=== PATIENT | female | born 1985 | race Caucasian/White ===

== ENCOUNTER 2016-06-28 15:03 | Emergency (ER) | payer OTHER ==
[2016-06-28 15:20] VITALS: BP 111/76
--- NOTE | 2016-06-28 16:37 | ED.ADGEN ---
Past History Past Medical History: No Pertinent History Past Surgical History: Other Alcohol Use: None Drug Use: None Adult General HPI HPI Patient is a 30-year-old female presents emergency department complaining of a "tingling and burning" along her left lateral leg. Patient states that come on over the last couple of days but is worse today. She also believes that the spider veins on her leg have been enlarged. She denies that there is any pain to the leg. She was working out today however became concerned that maybe something more serious. She denies any chest pain or dyspnea. Review of Systems Review of Systems Constitutional: Denies fever or chills [] Eyes: Denies change in visual acuity, redness, or eye pain [] HENT: Denies nasal congestion or sore throat [] Respiratory: Denies cough or shortness of breath [] Cardiovascular: No additional information not addressed in HPI [] GI: Denies abdominal pain, nausea, vomiting, bloody stools or diarrhea [] : Denies dysuria or hematuria [] Musculoskeletal: Denies back pain or joint pain [] Integument: Denies rash or skin lesions [] Neurologic: Denies headache, focal weakness or sensory changes [] Endocrine: Denies polyuria or polydipsia [] Allergies Allergies Allergies Coded Allergies Type Severity Reaction Last Updated Verified No Known Drug Allergies 06/28/16 No Physical Exam Physical Exam Constitutional: Well developed, well nourished, no acute distress, non-toxic appearance. [] HENT: Normocephalic, atraumatic, bilateral external ears normal, oropharynx moist, no oral exudates, nose normal. [] Eyes: PERRLA, EOMI, conjunctiva normal, no discharge. [] Neck: Normal range of motion, no tenderness, supple, no stridor. [] Cardiovascular:Heart rate regular rhythm, no murmur [] Lungs & Thorax: Bilateral breath sounds clear to auscultation [] Abdomen: Bowel sounds normal, soft, no tenderness, no masses, no pulsatile masses. [] Skin: Warm, dry, no erythema, no rash. [] Back: No tenderness, no CVA tenderness. [] Extremities: No tenderness, no cyanosis, no clubbing, ROM intact, no edema. [] Neurologic: Alert and oriented X 3, normal motor function, normal sensory function, no focal deficits noted. [] Psychologic: Affect normal, judgement normal, mood normal. [] Current Patient Data Vital Signs Vital Signs Date Time Temp Pulse Resp B/P Pulse Ox O2 Delivery O2 Flow Rate FiO2 06/28/16 15:20 97.7 68 16 99 Room Air EKG EKG [] Radiology/Procedures Radiology/Procedures [] Course & Med Decision Making Course & Med Decision Making Pertinent Labs and Imaging studies reviewed. (See chart for details) Patient has a completely benign exam. All of her compartments are nice and soft touch see no indications of a compartment syndrome. She has no risk factors and I do not see any evidence for DVT with a negative Wells and perc score. I do think she might have some myalgia paresthetica and have asked her to follow-up with her primary care physician regarding that. She will of course return emergency department sooner she develops new or worsening symptoms. [] Final Impression Final Impression Myalgia paresthetica [] Problems: Dragon Disclaimer Dragon Disclaimer This electronic medical record was generated, in whole or in part, using a voice recognition dictation system. HONORIO ARIAS MD Jun 28, 2016 16:37
== END 2016-06-28 16:15 | disposition home or self-care (01) ==
LOC: ER 15:03
DX: M79.1 Myalgia (principal); M79.605 Pain in left leg; R20.2 Paresthesia of skin
CPT/HCPCS: 99281

== ENCOUNTER 2016-09-07 10:42 | Emergency (ER) | payer OTHER ==
[~2016-09-07] VITALS: Ht 162.6 cm; Wt 53.1 kg
[2016-09-07 11:03] VITALS: BP 103/80
[2016-09-07] MEDS ORDERED: predniSONE 20 MG TABLET ONE (11:41)
[2016-09-07] MEDS ORDERED: KETOROLAC 60 MG/2 ML VIAL. IM ONE ×2 (11:42→11:45)
[2016-09-07] MEDS ORDERED: CYCL-331 PO (11:45)
[2016-09-07] MEDS ORDERED: HYDR-971 PO (11:45)
[2016-09-07] MEDS ORDERED: predniSONE 20 MG TABLET PO ONE (11:45)
--- NOTE | 2016-09-07 11:45 | PHYS DOC ---
Past History Past Medical History: No Pertinent History Past Surgical History: No Surgical History Alcohol Use: Rarely Drug Use: None Adult General Chief Complaint Chief Complaint: BACK PAIN OR INJURY [facility] 31-year-old female with no significant past medical history now presents to the emergency department complaining of low back pain. Patient states she strained her low back doing some activity recently and then it was feeling better but got suddenly worse when she bent over to give her dog some water today pain is worse with movement of the low back area. She does not have pain shooting down her legs. She has no incontinence or change in her strength sensation or use of her lower extremities. Patient has no prior history of spinal abnormalities or herniated disc. She's never had an MRI of her low back. Patient is able to ambulate with mild discomfort. Review of Systems Review of Systems Constitutional: Denies fever or chills [] Eyes: Denies change in visual acuity, redness, or eye pain [] HENT: Denies nasal congestion or sore throat [] Respiratory: Denies cough or shortness of breath [] Cardiovascular: No additional information not addressed in HPI [] GI: Denies abdominal pain, nausea, vomiting, bloody stools or diarrhea [] : Denies dysuria or hematuria [] Musculoskeletal: Denies back pain or joint pain [] Integument: Denies rash or skin lesions [] Neurologic: Denies headache, focal weakness or sensory changes [] Endocrine: Denies polyuria or polydipsia [] Allergies Allergies Allergies Coded Allergies Type Severity Reaction Last Updated Verified No Known Drug Allergies 06/28/16 No Physical Exam Physical Exam Constitutional: Well developed, well nourished, no acute distress, non-toxic appearance. [] HENT: Normocephalic, atraumatic, bilateral external ears normal, oropharynx moist, no oral exudates, nose normal. [] Eyes: , EOMI, conjunctiva normal, no discharge. [] Neck: Normal range of motion, no tenderness, supple, no stridor. [] Cardiovascular: No tachycardia in triage Lungs & Thorax: Normal and symmetrical chest wall excursion Abdomen: Nondistended abdomen nontender Skin: Warm, dry, no erythema, no rash. [] Back: Bilateral lumbar soft tissue paraspinal tenderness no CVA tenderness. No spinal or midline tenderness. No saddle anesthesia. Negative straight leg raise bilaterally. Neurovascularly intact bilateral lower extremities. [] Extremities: No tenderness, no cyanosis, no clubbing, ROM intact, no edema. [] Neurologic: Alert and oriented X 3, normal motor function, normal sensory function, no focal deficits noted. [] Psychologic: Affect normal, judgement normal, mood normal. [] Current Patient Data Vital Signs Vital Signs Date Time Temp Pulse Resp B/P (MAP) Pulse Ox O2 Delivery O2 Flow Rate FiO2 09/07/16 11:03 97.9 92 16 97 Room Air EKG EKG [] Radiology/Procedures Radiology/Procedures [] Course & Med Decision Making Course & Med Decision Making Pertinent Labs and Imaging studies reviewed. (See chart for details) Signs and symptoms consistent with lumbar strain with low back spasm. No clinical evidence of cauda equina syndrome. Negative straight leg raise with no stevan radiculopathy. Injury and pain clearly precipitated by mechanical movement of bending over today. Nonfocal neurologic exam. Patient states she is driving home. Steroid and anti-inflammatory medication administered and patient given prescription for muscle relaxant and [place]. No further workup or treatment indicated at this time. Patient agrees with outpatient follow-up with her primary care doctor and strict return precautions given. [] Dragon Disclaimer Dragon Disclaimer This chart was dictated in whole or in part using Voice Recognition software in a busy, high-work load, and often noisy Emergency Department environment. It may contain unintended and wholly unrecognized errors or omissions. Departure Departure: Disposition: HOME, SELF-CARE Condition: IMPROVED Referrals: PCP,UNKNOWN (PCP) Patient Instructions: Low Back Strain with [facility] Additional Instructions: Your symptoms suggest that you have low back strain also called lumbar strain. This means he injured some of the soft tissues that surround and support your spine and low back. It appears the also have some muscle spasm as a result of inflammation and injury to these muscles. Rest and avoid strenuous activity until her symptoms have improved. Take 800 mg of ibuprofen every 6 hours as needed for pain. Use Flexeril as prescribed as needed for spasm. Finish prednisone as prescribed once a day for 5 days and use [place] only if her pain is unrelieved by the other measures. Follow up with your doctor in 2-3 days for reevaluation and to discuss further workup in the future including possibility of MRI of your lumbar spine as needed. Return immediately for incontinence or inability to use her legs normally, or other severe or worsening symptoms Scripts Prednisone (PREDNISONE) 50 Mg Tablet 1 TAB PO DAILY for 5 Days, #5 TAB Prov: ANJANA RAPHAEL MD 09/07/16 Hydrocodone Bit/Acetaminophen (NORCO 5-325 TABLET) 1 Each Tablet 1 TAB PO PRN Q6HRS Y for PAIN, #10 TAB 0 Refills Prov: ANJANA RAPHAEL MD 09/07/16 Cyclobenzaprine Hcl (CYCLOBENZAPRINE HCL) 10 Mg Tablet 1 TAB PO TID, #30 TAB Prov: ANJANA RAPHAEL MD 09/07/16 ANJANA RAPHAEL MD Sep 07, 2016 11:45
[2016-09-07] MEDS ORDERED: PRED50TA PO (11:54)
== END 2016-09-07 12:09 | disposition home or self-care (01) ==
LOC: ER 10:42
DX: S39.012A Strain of muscle, fascia and tendon of lower back, initial encounter (principal); X58.XXXA Exposure to other specified factors, initial encounter; Y93.89 Activity, other specified; Y99.8 Other external cause status; Y92.89 Other specified places as the place of occurrence of the external cause
CPT/HCPCS: 96372; 99283; J1885; J7512

== ENCOUNTER 2016-10-08 07:19 | Emergency (ER) | payer OTHER ==
[~2016-10-08] VITALS: Ht 162.6 cm; Wt 52.2 kg
[~2016-10-08 07:19] MED LIST: CYCL-331 PO; HYDR-971 PO; PRED50TA PO
--- NOTE | 2016-10-08 07:53 | PHYS DOC ---
Past History Past Medical History: No Pertinent History Past Surgical History: No Surgical History Alcohol Use: Rarely Drug Use: None Adult General Chief Complaint Chief Complaint: nausea and vomiting HPI HPI Patient is a 31 year old female who presents with complaint of severe nausea and vomiting. Patient states her symptoms started approximately 1.5 hours prior to arrival. Patient states upon awakening she had severe nausea and multiple episodes of vomiting. Patient states that she has had history of similar symptoms and was told that she had cyclic vomiting syndrome. Patient states that she has not had any episodes for approximately 2 years. Patient states that when she's had these episodes she would have to come to the emergency department where she would receive IV fluids and IV antibiotics with resolution of symptoms. Patient states that she has an old prescription of Zofran at home and tried taking this medication prior to arrival with minimal relief in symptoms. Patient denies any pain, fever, urinary symptoms, or abnormal discharge. Patient states that her last menstrual period was one week ago. Review of Systems Review of Systems Constitutional: Denies fever or chills [] Eyes: Denies change in visual acuity, redness, or eye pain [] HENT: Denies nasal congestion or sore throat [] Respiratory: Denies cough or shortness of breath [] Cardiovascular: Denies chest pain or edema [] GI: Nausea, vomiting, denies abdominal pain, bloody stools, or diarrhea [] : Denies dysuria or hematuria [] Musculoskeletal: Denies back pain or joint pain [] Integument: Denies rash or skin lesions [] Neurologic: Denies headache, focal weakness or sensory changes [] Current Medications Current Medications Current Medications Medications (Trade) Dose Ordered Sig/Jorden Start Time Stop Time Status Last Admin Dose Admin Potassium Chloride (Klor-Con) 40 meq 1X ONCE 10/08/16 09:00 10/08/16 09:01 DC 10/08/16 08:40 Prochlorperazine Edisylate (Compazine) 10 mg 1X ONCE 10/08/16 08:30 10/08/16 08:31 DC 10/08/16 08:10 Sodium Chloride 1,000 ml @ 1,000 mls/hr Q1H 10/08/16 08:30 10/08/16 09:29 10/08/16 08:10 Allergies Allergies Allergies Coded Allergies Type Severity Reaction Last Updated Verified No Known Drug Allergies 06/28/16 No Physical Exam Physical Exam Constitutional: Alert, afebrile, appears fatigued. [] HENT: Normocephalic, atraumatic, bilateral external ears normal, oropharynx moist, no oral exudates, nose normal. [] Eyes: PERRLA, EOMI, conjunctiva normal, no discharge. [] Neck: Normal range of motion, no tenderness, supple, no stridor. [] Cardiovascular:Heart rate regular rhythm, no murmur [] Lungs & Thorax: Bilateral breath sounds clear to auscultation [] Abdomen: Bowel sounds normal, soft, no tenderness, no masses, no pulsatile masses. [] Skin: Warm, dry, no erythema, no rash. [] Back: No tenderness, no CVA tenderness. [] Extremities: No tenderness, no cyanosis, no clubbing, ROM intact, no edema. [] Neurologic: Alert and oriented X 3, normal motor function, normal sensory function, no focal deficits noted. [] Current Patient Data Vital Signs Vital Signs Date Time Temp Pulse Resp B/P (MAP) Pulse Ox O2 Delivery O2 Flow Rate FiO2 10/08/16 07:20 98.2 66 20 98 Room Air Lab Results Laboratory Tests Test 10/08/16 07:50 10/08/16 07:55 Bedside Urine HCG, Qualitative hcg negative White Blood Count 5.8 x10^3/uL Red Blood Count 4.37 x10^6/uL Hemoglobin 12.3 g/dL Hematocrit 35.0 % Mean Corpuscular Volume 80 fL Mean Corpuscular Hemoglobin 28 pg Mean Corpuscular Hemoglobin Concent 35 g/dL Red Cell Distribution Width 14.4 % Platelet Count 230 x10^3/uL Neutrophils (%) (Auto) 40 % Lymphocytes (%) (Auto) 46 % Monocytes (%) (Auto) 12 % Eosinophils (%) (Auto) 1 % Basophils (%) (Auto) 1 % Neutrophils # (Auto) 2.3 x10^3uL Lymphocytes # (Auto) 2.7 x10^3/uL Monocytes # (Auto) 0.7 x10^3/uL Eosinophils # (Auto) 0.1 x10^3/uL Basophils # (Auto) 0.0 x10^3/uL Sodium Level 138 mmol/L Potassium Level 2.5 mmol/L Chloride Level 93 mmol/L Carbon Dioxide Level 42 mmol/L Anion Gap 3 Blood Urea Nitrogen 22 mg/dL Creatinine 1.3 mg/dL Estimated GFR (Cockcroft-Gault) 48.1 Glucose Level 99 mg/dL Calcium Level 9.1 mg/dL Magnesium Level 1.8 mg/dL Current Medications Medications (Trade) Dose Ordered Sig/Jorden Route PRN Reason Start Time Stop Time Status Last Admin Dose Admin Sodium Chloride 1,000 ml @ 1,000 mls/hr Q1H IV 10/08/16 08:30 10/08/16 09:29 10/08/16 08:10 Prochlorperazine Edisylate (Compazine) 10 mg 1X ONCE IV 10/08/16 08:30 10/08/16 08:31 DC 10/08/16 08:10 Potassium Chloride (Klor-Con) 40 meq 1X ONCE PO 10/08/16 09:00 10/08/16 09:01 DC 10/08/16 08:40 EKG EKG Rhythm strip interpretation by me: Heart rate 66, sinus rhythm, no ectopy Oxygen saturation interpretation by me: 98% on room air with good waveform Radiology/Procedures Radiology/Procedures None performed [] Course & Med Decision Making Course & Med Decision Making Pertinent Labs and Imaging studies reviewed. (See chart for details) The patient was started on IV fluids and IV Compazine in the emergency department. The patient's nausea resolved with administration of Compazine. The patient requested that her IV be taken out before the full bolus of fluids could be given as she stated that the IV was hurting her arm. On examination, the IV fluids were infusing easily and patient showed no evidence of infiltration on exam. The patient was informed of her lab results including elevated BUN and creatinine and for the reasoning behind administration of IV fluids. The patient stated that she did not want the IV in place any more and received a total of 700 mL of IV fluids. The patient did agree that she would continue oral hydration at home. IV was removed at patient's request. Patient was also found to have a low potassium level at 2.5. Patient was given 40 mEq of potassium in the emergency department. Patient was offered to receive an additional 40 mEq one hour after initial administration to give her a total of 80 mEq and to avoid further nausea and vomiting from oral potassium supplementation. Patient stated that she did not want to wait in the emergency department to receive this, however she agreed to fill 40 mEq of potassium as a prescription to take as outpatient. Patient was given prescriptions for both potassium chloride and Zofran. Advise follow-up in 2 days with primary doctor and return to emergency department for any worsening symptoms. Patient voiced understanding and in agreement with treatment plan. Dragon Disclaimer Dragon Disclaimer This chart was dictated in whole or in part using Voice Recognition software in a busy, high-work load, and often noisy Emergency Department environment. It may contain unintended and wholly unrecognized errors or omissions. Departure Departure: Impression: Primary Impression: Nausea and vomiting Additional Impressions: Hypokalemia Dehydration Disposition: HOME, SELF-CARE Condition: IMPROVED Referrals: HONORIO GARCIA MD (PCP) Patient Instructions: Dehydration, Adult, Hypokalemia, Nausea and Vomiting Additional Instructions: Follow-up in 2 days with your primary doctor. Return to emergency department for any worsening symptoms. Scripts Potassium Chloride (POTASSIUM CHLORIDE) 10 Meq Tablet.er 40 MEQ PO 1X, #4 TAB Prov: DENIS DELEON MD 10/08/16 Ondansetron (ZOFRAN ODT) 4 Mg Tab.rapdis 1 TAB SL Q8HRS Y for NAUSEA/VOMITING, #20 TAB Prov: DENIS DELEON MD 10/08/16 Problem Qualifiers Primary Impression: Nausea and vomiting Vomiting type: cyclical vomiting Vomiting Intractability: non-intractable Qualified Codes: G43.A0 - Cyclical vomiting, not intractable DENIS DELEON MD Oct 08, 2016 07:53
[2016-10-08 08:09] LABS: BASO % 1 % (0-3); EOS # 0.1 x10^3/uL (0.0-0.7); EOS % 1 % (0-3); HEMOGLOBIN 12.3 g/dL (12.0-15.5); LYMPH # 2.7 x10^3/uL (1.0-4.8); LYMPH % 46 % (24-48); MEAN CORPUSCULAR HEMOGLOBIN 28 pg (25-35); MEAN CORPUSCULAR HGB CONC 35 g/dL (31-37); MEAN CORPUSCULAR VOLUME 80 fL (79-100); MONO # 0.7 x10^3/uL (0.0-1.1); MONO % 12 % (0-9); NEUT # 2.3 x10^3uL (1.8-7.7); NEUT % 40 % (31-73); PLATELET COUNT 230 x10^3/uL (140-400); RED BLOOD COUNT 4.37 x10^6/uL (3.50-5.40); RED CELL DISTRIBUTION WIDTH 14.4 % (11.5-14.5); WHITE BLOOD COUNT 5.8 x10^3/uL (4.0-11.0)
[2016-10-08 08:19] LABS: CALCIUM 9.1 mg/dL (8.5-10.1); CREATININE 1.3 mg/dL (0.6-1.0); GFR 48.1; MAGNESIUM 1.8 mg/dL (1.8-2.4)
[2016-10-08 08:20] LABS: POTASSIUM 2.5 mmol/L (3.5-5.1)
[2016-10-08] MEDS ORDERED: PROCHLORPERAZINE 10 MG/2 ML VIAL. IV ONE (08:30)
[2016-10-08] MEDS ORDERED: IV NORMAL SALINE 1,000ML 1,000 ML IV SCH (08:30)
[2016-10-08] MEDS ORDERED: ONDA4TAB10 SL (08:34)
[2016-10-08] MEDS ORDERED: POTA10TA10 PO (08:38)
[2016-10-08 08:40] VITALS: BP 112/70
[2016-10-08] MEDS ORDERED: POTASSIUM CHLORIDE 20 MEQ TABLET.ER. PO ONE (09:00)
[2016-10-08 10:30] LABS: BILIRUBIN,URINE NEG (NEG); CLARITY,URINE CLEAR; COLOR,URINE YELLOW; GLUCOSE,URINE NEG (NEG); NITRITE,URINE NEG (NEG); UROBILINOGEN,URINE 0.2 mg/dL (0.2 mg/dL)
== END 2016-10-08 08:45 | disposition home or self-care (01) ==
LOC: ER 07:19
DX: E86.0 Dehydration (principal); E87.6 Hypokalemia
CPT/HCPCS: 36415; 80048; 81003; 81025; 83735; 85027; 96374; 99285; J0780; J7030

== ENCOUNTER 2016-10-24 02:06 | Emergency (ER) | payer OTHER ==
[~2016-10-24] VITALS: Ht 162.6 cm; Wt 52.2 kg
[~2016-10-24 02:06] MED LIST changes: +ONDA4TAB10 SL; +POTA10TA10 PO
[2016-10-24 02:15] VITALS: BP 149/99
[2016-10-24] MEDS ORDERED: ERYTHROMYCIN 0.5% OPHTH OINTMENT 1GM TUBE. OU ONE (02:15)
[2016-10-24] MEDS ORDERED: diphenhydrAMINE HCL 25 MG CAPSULE PO ONE ×2 (02:15→02:30)
[2016-10-24] MEDS ORDERED: NAPH15DR OP (02:28)
[2016-10-24] MEDS ORDERED: DIPH25CA58 PO (02:28)
[2016-10-24] MEDS ORDERED: ERYT1OIN6 OP (02:28)
--- NOTE | 2016-10-24 02:28 | PHYS DOC ---
Past History Past Medical History: No Pertinent History Additional Past Surgical Histo: patient is had breast augmentation Smoking: Non-smoker Alcohol Use: Rarely Drug Use: None Adult General Chief Complaint Chief Complaint: EYE PROBLEMS [facility] This patient is a pleasant 31-year-old female who presents with a history of cold-like symptoms for the last week but presents tonight with increased swelling and drainage from her eyes bilaterally. She noted increased greenish yellowish discharge from her eyes bilaterally with no pain, no change in vision but increasing discomfort with discharge. She is to use Q-tips and compresses to remove the discharge from her eyes that she is gotten progressively worse. She denies burning sensation around her eyes with localized swelling secondary to self-inflicted abrasive trauma. Patient is no contact lens wear use or loss of vision. Patient denies any fever, headaches, chills, she has had nasal drainage and a cough. She denies any ear drainage or hearing loss. Patient also denies any trauma or foreign presentation eyes. 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 She came in tonight because she had difficulty sleeping with this puffiness in her eyes Review of Systems Review of Systems Constitutional: Denies fever or chills [] Eyes: Denies change in visual acuity, she does have redness and eye discharge without clear pain. HENT: He is considerable nasal congestion and a nonproductive cough Respiratory: As nonproductive, no shortness of breath Cardiovascular: No additional information not addressed in HPI [] GI: Denies abdominal pain, nausea, vomiting, bloody stools or diarrhea [] : Denies dysuria or hematuria [] Musculoskeletal: Denies back pain or joint pain [] Integument: Denies rash or skin lesions noted localized redness and some swelling around her eyes bilaterally. Neurologic: Denies headache, focal weakness or sensory changes [] Endocrine: Denies polyuria or polydipsia [] Allergies Allergies Allergies Coded Allergies Type Severity Reaction Last Updated Verified No Known Drug Allergies 06/28/16 No Physical Exam Physical Exam Patient vital signs recorded on the chart are within normal limits. Constitutional: Well developed, well nourished, no acute distress, non-toxic appearance. [] HENT: Normocephalic, atraumatic, bilateral external ears normal, oropharynx moist, no oral exudates, nose normal. [] Eyes: PERRLA, EOMI, conjunctiva are injected with mild chemosis there is a thin discharge around her eyes. There is moderate soft tissue swelling 1 each eye bilaterally with no warmth no evidence of proptosis. There is minimal erythema likely from self-inflicted abrasion. Cardiovascular:Heart rate regular rhythm, no murmur [] Lungs & Thorax: Bilateral breath sounds clear to auscultation [] Skin: Warm, dry, there is mild erythema around each eye with mild soft tissue swelling. Neurologic: Alert and oriented X 3, she has normal speech with no obvious cranial nerve deficit. Psychologic: Affect normal, judgement normal, mood normal. [] EKG EKG [] Radiology/Procedures Radiology/Procedures [] Course & Med Decision Making Course & Med Decision Making Pertinent Labs and Imaging studies reviewed. (See chart for details) patient is a pleasant otherwise healthy 31-year-old female who presents with bilateral conjunctivae this likely associated with the virus or the upper respiratory tract infection she suffered from I do not believe this is a periorbital or preseptal cellulitis. I subsequently provided erythromycin ointment and Benadryl to help treat her symptoms and encouraged to take a topical and is moving as well. We will provide or other means by which he treated her discomfort of her eyes and treat the discharge with an antibiotic. I doubt bacterial infection or foreign body. [] Dragon Disclaimer Dragon Disclaimer This chart was dictated in whole or in part using Voice Recognition software in a busy, high-work load, and often noisy Emergency Department environment. It may contain unintended and wholly unrecognized errors or omissions. Departure Departure: Impression: Primary Impression: Conjunctivitis Disposition: 01 HOME, SELF-CARE Condition: IMPROVED Referrals: HONORIO GARCIA MD (PCP) Patient Instructions: Conjunctivitis (Viral and Bacterial) Additional Instructions: Work/school Bacterial and viral conjunctivitis are both highly contagious and spread by direct contact with secretions or contact with contaminated objects. Infected individuals should not share handkerchiefs, tissues, towels, cosmetics, linens, or eating utensils. The safest approach to prevent spread to others is to stay home until there is no longer any discharge, but this is not feasible for most students and for those who work outside the home. Most daycare centers and schools require that students receive 24 hours of topical therapy before returning to school. Such therapy will probably reduce the transmission of conjunctivitis due to bacterial infection but will do nothing to reduce the spread of viral infections. We suggest advising patients to consider that their problem is like a cold, and their decision to return to work or school should be similar to the one they would make in that situation. Those who have contact with the very old, the very young, and immune-compromised individuals should take care to avoid spread of infection from their eye secretions to these susceptible people. Scripts Naphazoline Hcl/Pheniramine (NAPHCON-A EYE DROPS) 15 Ml Drops 15 ML OP TID for 5 Days, DROP Prov: ROBIN LOCK MD 10/24/16 Erythromycin Base (Erythromycin) 1 Gm Oint...g. 1 GM OP TID for 5 Days, MISC Prov: ROBIN LOCK MD 10/24/16 Diphenhydramine Hcl (BENADRYL) 25 Mg Capsule 50 MG PO QID for 5 Days, #40 CAP Prov: ROBIN LOCK MD 10/24/16 ROBIN LOCK MD Oct 24, 2016 02:28
[2016-10-24] MEDS ORDERED: ERYTHROMYCIN 0.5% OPHTH OINTMENT 1GM TUBE. ONE (02:30)
== END 2016-10-24 02:37 | disposition home or self-care (01) ==
LOC: ER 02:06
DX: S00.212A Abrasion of left eyelid and periocular area, initial encounter (principal); S00.211A Abrasion of right eyelid and periocular area, initial encounter; H10.9 Unspecified conjunctivitis; R09.81 Nasal congestion; R05 Cough; Y33.XXXA Other specified events, undetermined intent, initial encounter; Y93.89 Activity, other specified; Y92.89 Other specified places as the place of occurrence of the external cause; Y99.8 Other external cause status
CPT/HCPCS: 99283; Q0163

== ENCOUNTER 2017-03-18 14:00 | Emergency (ER) | payer OTHER ==
[~2017-03-18 14:00] MED LIST changes: +DIPH25CA58 PO; +ERYT1OIN6 OP; +NAPH15DR OP
[2017-03-18 15:27] LABS: BACTERIA,URINE 0 /HPF (0-FEW); BILIRUBIN,URINE NEG (NEG); CLARITY,URINE CLEAR; COLOR,URINE YELLOW; GLUCOSE,URINE NEG (NEG); NITRITE,URINE POS (NEG); SQUAMOUS EPITHELIAL CELL,UR MANY /LPF; UROBILINOGEN,URINE 0.2 mg/dL (0.2 mg/dL)
--- NOTE | 2017-03-18 15:35 | RAD ---
CT abdomen/pelvis 03/18/2017 Indication: Difficulty urinating, history of kidney stones. Comparison: None available. Comparison: Axial CT images of the abdomen and pelvis were obtained without intravenous contrast. Coronal and sagittal reformats are provided. Findings: Lung bases are clear. Heart size is within normal limits. The evaluation of the solid abdominal viscera is limited by lack of intravenous contrast. Bilateral breast prosthesis noted. Liver, spleen, bilateral adrenal glands, pancreas and gallbladder are normal. Abdominal aorta is normal in course and caliber. There are no pathologically enlarged lymph nodes in the abdomen or pelvis. There is no free fluid or free peritoneal air. The kidneys are symmetric in size. There are 4 nonobstructing calculi in the right kidney measuring up to 3 mm. There is a 2 mm nonobstructing calculus in the superior pole of the left kidney. There is no significant hydronephrosis. There is mild prominence of the left ureter. There is a 5 mm calculus in the urinary bladder, immediately distal to the left ureterovesicular junction. Small and large bowel are normal in caliber. No evidence for bowel obstruction. Large volume fecal contents identified throughout the colon without significant colonic distention. The pericolic inflammatory changes are identified. Oral contrast limits evaluation of the bowel. Specifically, the appendix is not definitively visualized. No suspicious pelvic masses are identified. Uterus is present. No suspicious osseous lesions are identified. Impression: There is a 5 mm calculus in the urinary bladder, immediately distal to the left ureterovesicular junction. Recommend correlation with resolution of symptoms. No hydronephrosis is identified. Bilateral nonobstructing renal calculi are noted, as detailed above. PQRS Compliance Statement: One or more of the following individualized dose reduction techniques were utilized for this examination: 1. Automated exposure control 2. Adjustment of the mA and/or kV according to patient size 3. Use of iterative reconstruction technique
[2017-03-18] MEDS ORDERED: TAMS0.4C97 PO (16:04)
[2017-03-18] MEDS ORDERED: CIPR250T30 PO (16:04)
[2017-03-18] MEDS ORDERED: IBUP800T19 PO (16:04)
--- NOTE | 2017-03-18 16:04 | PHYS DOC ---
Past History Past Medical History: No Pertinent History Additional Past Surgical Histo: patient is had breast augmentation Smoking: Non-smoker Alcohol Use: Rarely Drug Use: None Adult General Chief Complaint Chief Complaint: FLANK PAIN HPI HPI 31-year-old male patient with history of kidney stone complaining of suprapubic pain and discomfort for the last 10 days as a constant pain without radiation. Patient complaining of decrease of urine output and problem with her urination. Patient states she has had the same problem with her previous episodes of kidney stone. Patient states she took 10 days of Bactrim without change of her condition. Patient denies fever and chills, vomiting, diarrhea and constipation. She rated her pain mild and doesn't want pain medication in ER. Review of Systems Review of Systems Constitutional: Denies fever or chills [] Eyes: Denies change in visual acuity, redness, or eye pain [] HENT: Denies nasal congestion or sore throat [] Respiratory: Denies cough or shortness of breath [] Cardiovascular: No additional information not addressed in HPI [] GI: Denies abdominal pain, nausea, vomiting, bloody stools or diarrhea [] : Reports dysuria Integument: Denies rash or skin lesions [] Neurologic: Denies headache, focal weakness or sensory changes [] Endocrine: Denies polyuria or polydipsia [] All other systems were reviewed and found to be within normal limits, except as documented in this note. Allergies Allergies Allergies Coded Allergies Type Severity Reaction Last Updated Verified No Known Drug Allergies 06/28/16 No Physical Exam Physical Exam Constitutional: Well developed, well nourished, no acute distress, non-toxic appearance. [] HENT: Normocephalic, atraumatic, bilateral external ears normal, oropharynx moist, no oral exudates, nose normal. [] Eyes: PERRLA, EOMI, conjunctiva normal, no discharge. [] Neck: Normal range of motion, no tenderness, supple, no stridor. [] Cardiovascular:Heart rate regular rhythm, no murmur [] Lungs & Thorax: Bilateral breath sounds clear to auscultation [] Abdomen: Bowel sounds normal, soft, no tenderness, no masses, no pulsatile masses. [] Skin: Warm, dry, no erythema, no rash. [] Back: No tenderness, no CVA tenderness. [] Extremities: No tenderness, no cyanosis, no clubbing, ROM intact, no edema. [] Neurologic: Alert and oriented X 3, normal motor function, normal sensory function, no focal deficits noted. [] Psychologic: Affect normal, judgement normal, mood normal. [] Current Patient Data Lab Results Laboratory Tests Test 03/18/17 14:45 Urine Collection Type Unknown Urine Color Yellow Urine Clarity Clear Urine pH 8.5 Urine Specific [place] 1.015 Urine Protein Neg (NEG-TRACE) Urine Glucose (UA) Neg mg/dL (NEG) Urine Ketones (Stick) Neg mg/dL (NEG) Urine Blood Trace (NEG) Urine Nitrite Pos (NEG) Urine Bilirubin Neg (NEG) Urine Urobilinogen Dipstick 0.2 mg/dL (0.2 mg/dL) Urine Leukocyte Esterase Neg (NEG) Urine RBC 3-5 /HPF (0-2) Urine WBC 1-4 /HPF (0-4) Urine Squamous Epithelial Cells Many /LPF Urine Bacteria 0 /HPF (0-FEW) Urine Mucus Slight /LPF EKG EKG [] Radiology/Procedures Radiology/Procedures [] Course & Med Decision Making Course & Med Decision Making Pertinent Labs and Imaging studies reviewed. (See chart for details) Evaluation of patient in ER showed 4-year-old male patient with complaining of suprapubic pain like her previous episodes of kidney stone. Patient had unremarkable physical exam. She did not want to have blood tests or IV line. UA showed positive nitrate. CT of abdomen and pelvis showed 5 mm stone in bladder close to UV junction that I think still it is in UV junction without hydronephrosis. Patient instructed to follow with her urology doctor and increase fluid intake and plan to give prescription for ibuprofen and Flomax. Dragon Disclaimer Dragon Disclaimer This electronic medical record was generated, in whole or in part, using a voice recognition dictation system. Departure Departure: Impression: Primary Impression: Renal colic Additional Impressions: Kidney stone UTI (urinary tract infection) Disposition: 01 HOME, SELF-CARE (At 1601) Condition: STABLE Referrals: HONORIO GARCIA MD (PCP) Patient Instructions: Diet for Kidney Stones, Kidney Stones Additional Instructions: Drink plenty of liquids Follow-up with case urology care or your urologist Strain all of your urine Return to ER if not getting better Scripts Ciprofloxacin Hcl (CIPRO) 250 Mg Tablet 1 TAB PO BID, #14 TAB Prov: KOUSHA,EVER MD 03/18/17 Ibuprofen (IBUPROFEN) 800 Mg Tablet 1 TAB PO TID, #30 TAB Prov: EVER ANN MD 03/18/17 Tamsulosin Hcl (FLOMAX) 0.4 Mg Cap.er.24h 1 CAP PO DAILY, #14 CAP 11 Refills Prov: EVER ANN MD 03/18/17 Problem Qualifiers EVER ANN MD Mar 18, 2017 16:04
[2017-03-18 16:22] VITALS: BP 116/70
== END 2017-03-18 16:22 | disposition home or self-care (01) ==
LOC: ER 14:00
DX: N20.0 Calculus of kidney (principal); N39.0 Urinary tract infection, site not specified; Z87.442 Personal history of urinary calculi
CPT/HCPCS: 74176; 81001; 81025; 87086; 87186; 99285-25